=== PATIENT | female | born 1955 | race Caucasian/White ===

== ENCOUNTER → 2016-11-26 | Outpatient (CLI) | payer BC ==
--- NOTE | 2016-11-27 08:01 | WWHP ---
DATE OF SERVICE: 11/26/2016 CHIEF COMPLAINT: The patient is here for her routine gynecologic exam and mammogram. HPI: This is a 61-year-old G4, P3-0-1-3 with an LMP of 2008. The patient is without gynecologic complaints and denies any postmenopausal bleeding. PAST MEDICAL HISTORY: Hypothyroidism, elevated cholesterol, chronic hypertension, asthma, osteopenia and arthritis. MEDICATIONS: 1. Simvastatin 20 mg daily. 2. Synthroid 100 mcg 5 days a week. 3. Amlodipine 5 mg daily. 4. Qvar 1 puff b.i.d. 5. Calcium supplement with vitamin D 1 b.i.d. 6. Vitamin D 1000 units daily. 7. Sleep aid at bedtime. ALLERGIES: No known drug allergies. PAST SURGICAL HISTORY: section x2, D&C in 1995, colonoscopies in 2006, 2012 and 2015. 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 SOCIAL HISTORY: She denies tobacco, alcohol, and drug use. 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 FAMILY HISTORY: Unchanged from the 2015 H&P. REVIEW OF SYSTEMS: She gained about 9 pounds over the last year. She denies respiratory, cardiac, or GI problems. PHYSICAL EXAM: Blood pressure 119/79. Height 5 feet 7 inches. Weight 215 pounds. Temperature 98.7, pulse 84. This a well-developed, well-nourished white female who is alert and oriented x3 in no acute distress. HEENT is within normal limits. NECK: Supple without mass or thyromegaly. CHEST AND LUNGS: Clear to auscultation. HEART: Regular rate and rhythm. Breasts are without mass or discharge. Axillary exam is negative for adenopathy. BACK: Negative for CVA tenderness. ABDOMEN: Soft, nontender, without palpable masses. PELVIC EXAM: External genitalia reveals moderate atrophy without lesions. Cervix and vagina reveal mild to moderate atrophy without lesions. The cervix is slightly stenotic secondary to atrophy. There is no evidence of prolapse. The uterus is midposition, nongravid size and nontender. There are no palpable adnexal masses or tenderness. Rectovaginal exam is negative for mass or tenderness and is negative for occult blood. EXTREMITIES: Nontender. IMPRESSION: 1. A 61-year-old menopausal female with normal gynecologic exam. 2. History of osteopenia. PLAN: 1. Pap smear was performed. 2. Self breast examination was discussed. 3. Mammogram will be done today. 4. Bone density testing will be done today. 5. Osteoporosis prevention was discussed. 6. She will return in one year.
--- NOTE | 2016-11-27 08:12 | BD ---
EXAMINATION TYPE: MG DEXA axial skeleton. DATE OF EXAM: 11/26/2016 1:50 PM COMPARISON: 2012 CLINICAL HISTORY: post menopausal Height: 5'6 Weight: 216 FRAX RISK QUESTIONS: Alcohol (3 or more units per day): no Family History (Parent hip fracture): yes Glucocorticoids (More than 3mos): no (Ex: prednisone, prednisolone, methylprednisolone, dexamethasone, and hydrocortisone). History of Fracture in Adulthood: no Secondary Osteoporosis: 1. Type 1 Diabetes: no 2. Hyperthyroidism: no 3. Menopause before 45: no 4. Malnutrition: no 5. Chronic liver disease: no Rheumatoid Arthritis: no Current Tobacco Use: no RISK FACTORS HISTORY OF: Family History of Osteoporosis: Active: semi Postmenopausal woman: MEDICATIONS: Thyroid Medications: Which medication: Synthroid How Lon years Additional Medications: blood pressure, cholesterol, asthma, vitamin d ,calcium , sleep help Additional History: EXAM MEASUREMENTS: Bone mineral densitometry was performed using the [employer] System. Bone mineral density as measured about the Lumbar spine is: ----- L1-L4(G/cm2): 1.054 T Score Values are as follows: ----- L2: -1.5 ----- L3: -1.3 ----- L4: -0.5 ----- L1-L4:-1.0 Bone mineral density has: Decreased -4.4% since study of: 06/29/2013 Bone mineral density about the R hip (g/cm2): 0.741 Bone mineral density about the L hip (g/cm2): 0.745 T Score values are as follows: -----R Neck: -2.1 -----L Neck: -2.1 -----R Total: -1.7 -----L Total: -1.6 Bone mineral density has: Decreased -0.8% since study of: 06/29/2013 IMPRESSION: Osteopenia (T Score between -2.5 and -1 as noted by T score values:L2,L3, Jeremy Hips There is slightly increased risk of fracture and the patient may be considered for treatment. Re-Screen 2-5 years. Bone density within the bilateral hips has diminished 0.6% from 06/29/2013. Bone density within the l umbar spine is diminished 4.4% from 2012. NOTE: T-SCORE=SD OF THE YOUNG ADULT MEAN.
--- NOTE | 2016-11-27 12:54 | MM ---
Reason for exam: screening (asymptomatic). Last mammogram was performed 1 year and 5 months ago. History: Patient is postmenopausal. Took hormonal contraceptives for 2 years. Physical Findings: A clinical breast exam by your physician is recommended on an annual basis and results should be correlated with mammographic findings. MG 3D Screening Mammo W/Cad Bilateral CC, MLO, and XCCL view(s) were taken. Prior study comparison: July 11, 2015, bilateral MG 3d screening mammo w/cad. July 05, 2014, bilateral MG screening mammo w CAD. June 29, 2013, CAD bilateral diagnostic mammogram. There are scattered fibroglandular densities. Finding: There are typically benign vascular, round calcifications in both breasts. There is a chronic nodularity bilaterally. There is no discrete abnormality. ASSESSMENT: Benign, BI-RAD 2 RECOMMENDATION: Routine screening mammogram of both breasts in 1 year.
== END | disposition home or self-care (01) ==
LOC: WWCWWP 12:24
PROVIDERS: ATTEND Obstetrics & Gynecology
DX: Z12.31 Encounter for screening mammogram for malignant neoplasm of breast (principal); M85.851 Other specified disorders of bone density and structure, right thigh; M85.852 Other specified disorders of bone density and structure, left thigh
CPT/HCPCS: 77080; 77063; G0202

== ENCOUNTER → 2017-03-24 | Outpatient (CLI) | payer BC ==
--- NOTE | 2017-03-25 09:34 | ECHOF ---
Referral Reason:R01.1 Cardiac Murmur Unspecified MEASUREMENTS -------- HEIGHT: 167.6 cm WEIGHT: 97.5 kg BP: RVIDd: 2.4 cm (< 3.3) IVSd: 1.3 cm (0.6 - 1.1) LVIDd: 3.8 cm (3.9 - 5.3) LVPWd: 1.2 cm (0.6 - 1.1) IVSs: 1.8 cm LVIDs: 2.9 cm LVPWs: 1.5 cm LAESV Index (A-L): 19.65 ml/m Ao Diam: 3.0 cm (2.0 - 3.7) AV Cusp: 1.8 cm (1.5 - 2.6) LA Diam: 3.6 cm (2.7 - 3.8) MV EXCURSION: 15.293 mm (> 18.000) MV EF SLOPE: 85 mm/s (70 - 150) EPSS: 1.3 cm MV E Theron: 0.96 m/s MV DecT: 289 ms MV A Theron: 0.85 m/s MV E/A Ratio: 1.12 RAP: 5.00 mmHg RVSP: 32.83 mmHg FINDINGS -------- Sinus rhythm. This was a technically adequate study. The left ventricular size is normal. There is mild concentric left ventricular hypertrophy. Overall left ventricular systolic function is normal with, an EF between 55 - 60 %. The right ventricle is normal in size and function. Normal LA size by volume 22+/-6 ml/m2. The right atrium is normal in size. Aortic valve is trileaflet and is mildly thickened. There is no evidence of aortic regurgitation. There is no evidence of aortic stenosis. The mitral valve leaflets are mildly thickened. Mild mitral regurgitation is present. Mild tricuspid regurgitation present. Right ventricular systolic pressure is normal at < 35 mmHg. There is no evidence of pulmonary hypertension. The pulmonic valve is normal. The aortic root size is normal. Normal inferior vena cava with normal inspiratory collapse consistent with estimated right atrial pressure of 5 mmHg. The pericardium is normal. There is no pericardial effusion. CONCLUSIONS -------- 1. Sinus rhythm. 2. Mild tricuspid regurgitation present. 3. Right ventricular systolic pressure is normal at < 35 mmHg. 4. There is no evidence of pulmonary hypertension. 5. The aortic root size is normal. 6. There is no pericardial effusion. 7. This was a technically adequate study. 8. The left ventricular size is normal. 9. There is mild concentric left ventricular hypertrophy. 10. Overall left ventricular systolic function is normal with, an EF between 55 - 60 %. 11. Normal LA size by volume 22+/-6 ml/m2. 12. Aortic valve is trileaflet and is mildly thickened. 13. The mitral valve leaflets are mildly thickened. 14. Mild mitral regurgitation is present. ENGINEERING DOCUMENT CONTROL CLERK: Felipe Baumann RDCS
== END | disposition home or self-care (01) ==
LOC: RADECHMAIN 15:24
PROVIDERS: ATTEND Family Medicine
DX: I08.3 Combined rheumatic disorders of mitral, aortic and tricuspid valves (principal)
CPT/HCPCS: 93306

== ENCOUNTER → 2017-12-30 | Outpatient (CLI) | payer BC ==
[2017-12-30 12:42] LABS: Basophils % (A) 0 %; Eosinophils # (A) 0.2 k/uL (0-0.7); Eosinophils % (A) 2 %; HCT 40.8 % (34.0-46.0); Lymphocytes # (A) 1.7 k/uL (1.0-4.8); Lymphocytes % (A) 16 %; MCH 28.6 pg (25.0-35.0); MCHC 31.9 g/dL (31.0-37.0); MCV 89.7 fL (80.0-100.0); Mean Platelet Volume 6.6; Monocytes # (A) 0.4 k/uL (0-1.0); Monocytes % (A) 4 %; Neutrophils # (A) 8.4 k/uL (1.3-7.7); Neutrophils % (A) 77 %; Platelet Count 336 k/uL (150-450); RBC 4.55 m/uL (3.80-5.40); RDW 13.3 % (11.5-15.5)
[2018-01-02 14:31] LABS: Hepatitis BE Antibody NEG (Negative)
[2018-01-02 14:34] LABS: Hepatitis BE Antigen NEG (Negative)
== END | disposition home or self-care (01) ==
LOC: LABWHC1 12:02
PROVIDERS: ATTEND Dermatology
DX: L40.0 Psoriasis vulgaris (principal); L82.0 Inflamed seborrheic keratosis; L53.8 Other specified erythematous conditions
CPT/HCPCS: 36415; 82565; 84450; 84460; 84520; 85025; 86707; 86803; 87350

== ENCOUNTER → 2018-03-12 | Outpatient (CLI) | payer BC ==
[2018-03-12 09:18] LABS: Basophils # (A) 0.1 k/uL (0-0.2); Basophils % (A) 1 %; Eosinophils # (A) 0.2 k/uL (0-0.7); Eosinophils % (A) 2 %; HCT 42.3 % (34.0-46.0); HGB 12.7 gm/dL (11.4-16.0); Hypochromasia Slight; Lymphocytes # (A) 1.9 k/uL (1.0-4.8); Lymphocytes % (A) 20 %; MCH 27.2 pg (25.0-35.0); MCV 90.5 fL (80.0-100.0); Mean Platelet Volume 6.2; Monocytes # (A) 0.5 k/uL (0-1.0); Monocytes % (A) 5 %; Neutrophils # (A) 7.2 k/uL (1.3-7.7); Neutrophils % (A) 73 %; Platelet Count 378 k/uL (150-450); RBC 4.67 m/uL (3.80-5.40); RDW 13.2 % (11.5-15.5); WBC 9.9 k/uL (3.8-10.6)
[2018-03-12 09:34] LABS: Calcium 9.8 mg/dL (8.4-10.2); Total Bilirubin 0.4 mg/dL (0.2-1.3); Total Protein 7.6 g/dL (6.3-8.2)
[2018-03-12 09:49] LABS: T4, Free (Free Thyroxine) 0.9 ng/dL (0.78-2.19)
== END | disposition home or self-care (01) ==
LOC: LABWHC1 08:58
PROVIDERS: ATTEND Family Medicine
DX: Z00.01 Encounter for general adult medical examination with abnormal findings (principal); I10 Essential (primary) hypertension; E78.2 Mixed hyperlipidemia; E03.9 Hypothyroidism, unspecified; J45.20 Mild intermittent asthma, uncomplicated; E55.9 Vitamin D deficiency, unspecified
CPT/HCPCS: 36415; 80053; 80061; 82306; 84439; 84443; 85025

== ENCOUNTER → 2018-06-30 | Outpatient (CLI) | payer BC ==
--- NOTE | 2018-06-30 07:59 | MR ---
EXAMINATION TYPE: MR sacroiliac joints wo con DATE OF EXAM: 06/30/2018 COMPARISON: None. HISTORY: Sacrolitiis / Inflammation of Sacroiliac Joint sacrum Standard multiplanar, multisequence MRI departmental protocol Multiplanar, multisequence images of the pelvis focus in sacroiliac joints were acquired. FINDINGS: Sacroiliac joints show symmetric mild to moderate spurring. No suspicious narrowing is iden tified. Bone marrow signal intensity is maintained without suspicious focal edema appreciated in eith er sacroiliac joint. Visualized portion of sacral alar are intact. Visualized portion of pelvis shows anteverted uterus and nondilated bowel. No concerning pelvic fluid collection or adenopathy is seen. Bladder is suboptimally distended. IMPRESSION: Some spurring at sacroiliac joints seen best on axial images. No suspicious edema noted to suggest ac tive or acute sacroiliitis.
== END | disposition home or self-care (01) ==
LOC: RADMRIMAIN 06:02
PROVIDERS: ATTEND Internal Medicine Rheumatology
DX: M46.08 Spinal enthesopathy, sacral and sacrococcygeal region (principal)
CPT/HCPCS: 72195

== ENCOUNTER → 2019-03-03 | Outpatient (CLI) | payer BC ==
[2019-03-03 10:31] VITALS: BP 144/87; PULSE 76; RESP 18; TEMP 98.4; BMI 30.9
--- NOTE | 2019-03-03 11:40 | P.HPOB ---
History of Present Illness H&P Date: 03/03/19 Chief Complaint: The patient is here for her routine gynecologic exam and ma mmogram. This is a 63-year-old with an element of 2008. The patient is without gynecologic complaints and denies any postmenopausal bleeding. Review of Systems The patient has lost 23 pounds over the last 2years and she attributes this to a decreased appetite with methotrexate.. She denies respiratory, cardiac, or G.I. problems. Past Medical History Past Medical History: Asthma, COPD, Hyperlipidemia, Hypertension, Osteoarthritis (OA), Thyroid Disorder Additional Past Medical History / Comment(s): Hypothyroidism, psoriasis, and osteopenia.. 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 History of Any Multi-Drug Resistant Organisms: None Reported Past Surgical History: Section Additional Past Surgical History / Comment(s): colonoscopy 2016(3rd, next after 5yrs),c-sect x2, D&C x2 Past Anesthesia/Blood Transfusion Reactions: No Reported Reaction Past Psychological History: No Psychological Hx Reported Smoking Status: Never smoker Past Alcohol Use History: None Reported Past Drug Use History: None Reported Additional History: She has been since 1972 and is sexually active. 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 - Past Family History Mother Family Medical History: COPD, CVA/TIA, Myocardial Infarction ([place]) Additional Family Medical History / Comment(s): emphysema Father Family Medical History: COPD Additional Family Medical History / Comment(s): emphysema Brother(s) Family Medical History: CVA/TIA, Diabetes Mellitus Sister(s) Family Medical History: Hypertension, Thyroid Disorder Additional Family Medical History / Comment(s): thyroid ca,arrythmias Medications and Allergies Home Medications Medication Instructions Recorded Confirmed Type Acetaminophen [Tylenol Arthritis] 650 mg PO HS PRN 03/21/16 03/03/19 History Beclomethasone Dipropionate [Qvar 1 puff INHALATION BID 03/21/16 03/03/19 History 80 mcg] Calcium Carbonate/Vitamin D3 2 each PO DAILY 03/21/16 03/03/19 History [Calcium 600-Vit D3 400 Caplet] Cholecalciferol [Vitamin D3] 1,000 unit PO BID 03/21/16 03/03/19 History Levothyroxine Sodium [Synthroid] 100 mcg PO MOTUTHFRSA 03/21/16 03/03/19 History Simvastatin 20 mg PO HS 03/21/16 03/03/19 History amLODIPine BESYLATE [Norvasc] 5 mg PO QAM 03/21/16 03/03/19 History diphenhydrAMINE [Benadryl] 50 mg PO HS PRN 03/21/16 03/03/19 History Folic Acid 1 tab PO DAILY 03/03/19 03/03/19 History Methotrexate [Xatmep Oral Soln] 10 cap PO FARLEY 03/03/19 03/03/19 History predniSONE 5 mg PO DAILY 03/03/19 03/03/19 History Allergies Allergy/AdvReac Type Severity Reaction Status Date / Time No Known Allergies Allergy Verified 03/03/19 10:37 Exam Vital Signs Temp Pulse Resp BP Pulse Ox 03/03/19 10:26 98.4 F 76 18 144/87 98 Intake and Output 03/02/19 03/03/19 03/03/19 22:59 06:59 14:59 Other: Weight 87.09 kg Height 5'6", weight 192 pounds, BMI 31.0. This is a well-developed well-nourished white female who is alert and oriented times 3 in no acute distress. HEENT: Within normal limits. NECK: Supple without mass or thyromegaly. CHEST AND LUNGS: Clear to auscultation. HEART: Regular rate and rhythm. BREASTS: Are without mass or discharge. AXILLARY EXAM: Negative for adenopathy. BACK: Negative for CVA tenderness. ABDOMEN: Soft, nontender, without palpable masses. PELVIC EXAM: Normal external genitalia with mild to moderate atrophy. Cervix and vagina appear normal with mild to moderate atrophy. There is no unusual discharge. There is no evidence of prolapse. The uterus is midposition, nongravid size and nontender. There are no palpable adnexal masses or tenderness. RECTAL EXAM: rectovaginal exam is negative for mass or tenderness and is negative for occult blood. EXTREMITIES: Nontender. IMPRESSION: 1. 63-year-old menopausal female with normal gynecologic exam. 2. History of osteopenia. PLAN: 1. Pap smear was performed. 2. Self breast awareness was discussed with the patient. 3. Screening mammogram will be done today. 4. Osteoporosis prevention was discussed. I have stressed the importance of adequate calcium, vitamin D and regular exercise. Recommended amounts of calcium and vitamin D were also discussed. Bone density testing will be done today. 5. We have discussed the option of vaginal estrogen for vaginal dryness and discomfort with sexual intercourse. She will use a lubricant if needed and will call if she feels the need for vaginal estrogen. 6. She was advised to return in one year for her annual well woman exam.
--- NOTE | 2019-03-04 11:48 | MM ---
Reason for exam: screening (asymptomatic). Last mammogram was performed 2 years and 3 months ago. History: Patient is postmenopausal. Took hormonal contraceptives for 2 years. Physical Findings: A clinical breast exam by your physician is recommended on an annual basis and results should be correlated with mammographic findings. MG 3D Screening Mammo W/Cad Bilateral CC, MLO, and XCCM view(s) were taken. Prior study comparison: November 26, 2016, bilateral MG 3d screening mammo w/cad. July 11, 2015, bilateral MG 3d screening mammo w/cad. The breast tissue is heterogeneously dense. This may lower the sensitivity of mammography. There are benign appearing vascular calcifications bilaterally. There is chronic nodularity bilaterally axilla. There is no discrete abnormality. ASSESSMENT: Benign, BI-RAD 2 RECOMMENDATION: Routine screening mammogram of both breasts in 1 year.
--- NOTE | 2019-03-05 17:32 | BD ---
EXAMINATION TYPE: Axial Bone Density DATE OF EXAM: 03/03/2019 COMPARISON: 11/26/2016 CLINICAL HISTORY: Height: 65.5 IN Weight: 191 LBS FRAX RISK QUESTIONS: Family History (Parent hip fracture): YES MOTHER History of Fracture in Adulthood: YES SHOULDER AGE 63 RISK FACTORS HISTORY OF: Active: YES Postmenopausal woman: AGE 54 Take estrogen and/or progesterone medications: NOT NOW TOOK CONTROL FOR 2 YEARS MEDICATIONS: Prednisone or other steroids: PT TAKING A 10 WEEK COURSE OF PREDNISONE FOR PSORIASIS. PT ON WEEK 2. Thyroid Medications: YES Which medication: Synthroid How Lon+ YEARS Additional Medications: CALCIUM, VIT D, SYNTHROID, PREDNISONE(WEEK 2 OF 10 WEEKS FOR PSORIASIS),SIMVA STATIN, AMLODIPINE, FOLIC ACID, QVAR INHALER, METHOTREXATE, SLEEP AID MEDICATION EXAM MEASUREMENTS: Bone mineral densitometry was performed using the [employer] System. Bone mineral density as measured about the Lumbar spine is: ----- L1-L4(G/cm2): 1.009 T Score Values are as follows: ----- L2: -1.4 ----- L3: -0.9 ----- L4: -1.3 ----- L1-L4: -1.4 Bone mineral density has: Decreased -2.2% since study of: 11/26/2016 Bone mineral density about the R hip (g/cm2): 0.675 Bone mineral density about the L hip (g/cm2): 0.686 T Score values are as follows: -----R Neck: -2.6 -----L Neck: -2.5 -----R Total: -2.2 -----L Total: -2.0 Bone mineral density has: Decreased -7.3% since study of: 11/26/2016 IMPRESSION: Osteoporosis (T Score less than -2.5). There is increased fracture risk and therapy is usually indicated based on age. Re-Screen 1-2 years. NOTE: T-SCORE=SD OF THE YOUNG ADULT MEAN.
== END | disposition home or self-care (01) ==
LOC: WWCWWP 10:12
PROVIDERS: ATTEND Obstetrics & Gynecology
DX: Z12.31 Encounter for screening mammogram for malignant neoplasm of breast (principal); M81.0 Age-related osteoporosis without current pathological fracture; Z78.0 Asymptomatic menopausal state
CPT/HCPCS: 77063; 77067; 77080

== ENCOUNTER → 2019-03-31 | Outpatient (CLI) | payer BC ==
[2019-03-31 18:43] LABS: African American GFR (CKD) 55.3 (60.0-200.0); Calcium 8.9 mg/dL (8.7-10.3)
== END | disposition home or self-care (01) ==
LOC: LABWHC1 13:39
PROVIDERS: ATTEND Obstetrics & Gynecology
DX: M81.0 Age-related osteoporosis without current pathological fracture (principal)
CPT/HCPCS: 36415; 82310; 82565

== ENCOUNTER 2020-02-07 10:28 | Emergency (ER) | payer MEDICARE, BC ==
[2020-02-07 10:41] LABS: Glucose,Whole Blood 107 mg/dL (75-99)
--- NOTE | 2020-02-07 11:11 | ED ---
General Adult HPI - General Chief complaint: Recheck/Abnormal Lab/Rx Stated complaint: poss blood sugar problem Time Seen by Provider: 02/07/20 10:54 Source: patient, RN notes reviewed Mode of arrival: ambulatory Limitations: no limitations - History of Present Illness Initial comments: 64-year-old female presents emergency Department with chief complaint of episodes of feeling jittery. Patient states that she's had these have path and states she woke up around 2 AM this morning states that she felt very jittery, slightly at that time. Patient states that she had no chest pain or shortness breath no nausea vomiting diarrhea constipation associated. She states that this is a same episodes that she's had in the past in which she just has to eat something. Patient states she did eat something felt better but states that she will eventually woke up against morning felt somewhat. Patient states that she tried some food initially did not help but then went ODT in symptoms improved. Patient denies any current symptoms denies any chest pain, shortness breath, headache, dizziness, neck pain, back pain, dysuria hematuria. Patient states that she did have peanut butter and toast along with the croissant sandwich this morning blood sugar 107 on arrival. Patient has never checked her blood sugar when she was symptomatic. - Related Data Home Medications Medication Instructions Recorded Confirmed Beclomethasone Dipropionate [Qvar 1 puff INHALATION RT-BID 03/21/16 02/07/20 80 mcg] Calcium Carbonate/Vitamin D3 1 tab PO DAILY 03/21/16 02/07/20 [Calcium 600-Vit D3 400 Caplet] Cholecalciferol [Vitamin D3] 1,000 unit PO BID 03/21/16 02/07/20 Levothyroxine Sodium [Synthroid] 100 mcg PO MOTUWETHFRSA 03/21/16 02/07/20 Simvastatin 20 mg PO HS 03/21/16 02/07/20 amLODIPine BESYLATE [Norvasc] 5 mg PO QAM 03/21/16 02/07/20 diphenhydrAMINE [Benadryl] 50 mg PO HS PRN 03/21/16 02/07/20 Folic Acid 1 tab PO DAILY 03/03/19 02/07/20 Alendronate Sodium [Fosamax] 70 mg PO FARLEY 02/07/20 02/07/20 Calcium Carbonate [Calcium] 600 mg PO DAILY 02/07/20 02/07/20 metHOTREXate sodium [Methotrexate] 25 mg PO FARLEY 02/07/20 02/07/20 Allergies Allergy/AdvReac Type Severity Reaction Status Date / Time No Known Allergies Allergy Verified 02/07/20 11:55 Review of Systems ROS Statement: Those systems with pertinent positive or pertinent negative responses have been documented in the HPI. ROS Other: All systems not noted in ROS Statement are negative. Past Medical History Past Medical History: Asthma, COPD, Hyperlipidemia, Hypertension, Osteoarthritis (OA), Thyroid Disorder Additional Past Medical History / Comment(s): Hypothyroidism, psoriasis, and osteopenia.. 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 History of Any Multi-Drug Resistant Organisms: None Reported Past Surgical History: Section Additional Past Surgical History / Comment(s): colonoscopy 2016(3rd, next after 5yrs),c-sect x2, D&C x2 Past Anesthesia/Blood Transfusion Reactions: No Reported Reaction Past Psychological History: No Psychological Hx Reported Smoking Status: Never smoker Past Alcohol Use History: None Reported Past Drug Use History: None Reported - Past Family History Mother Family Medical History: COPD, CVA/TIA, Myocardial Infarction ([place]) Additional Family Medical History / Comment(s): emphysema Father Family Medical History: COPD Additional Family Medical History / Comment(s): emphysema Brother(s) Family Medical History: CVA/TIA, Diabetes Mellitus Sister(s) Family Medical History: Hypertension, Thyroid Disorder Additional Family Medical History / Comment(s): thyroid ca,arrythmias General Exam Limitations: no limitations General appearance: alert, in no apparent distress Head exam: Present: atraumatic, normocephalic, normal inspection Eye exam: Present: normal appearance, PERRL, EOMI. Absent: scleral icterus, conjunctival injection, periorbital swelling ENT exam: Present: normal exam, normal oropharynx, mucous membranes moist Neck exam: Present: normal inspection, full ROM. Absent: tenderness, meningismus, lymphadenopathy Respiratory exam: Present: normal lung sounds bilaterally. Absent: respiratory distress, wheezes, rales, rhonchi, stridor Cardiovascular Exam: Present: regular rate, normal rhythm, normal heart sounds. Absent: systolic murmur, diastolic murmur, rubs, gallop, clicks GI/Abdominal exam: Present: soft, normal bowel sounds. Absent: distended, tenderness, guarding, rebound, rigid Neurological exam: Present: alert, oriented X3, CN II-XII intact Skin exam: Present: warm, dry, intact, normal color. Absent: rash Course Vital Signs 02/07/20 02/07/20 10:36 12:08 Temperature 98.4 F Pulse Rate 81 72 Respiratory 18 16 Rate Blood Pressure 155/67 139/74 O2 Sat by Pulse 96 99 Oximetry Medical Decision Making - Medical Decision Making 64-year-old presented for episode of shaking, jugular feeling there is concern about possible hyperglycemia. Sugar was 105 after eating. Rest of labs are unremarkable. Patient has no complaints at this time will be discharged in stable condition with close follow-up she is recommended to purchase a glucometer for self-monitoring. - Lab Data Result diagrams: 02/07/20 11:09 02/07/20 11:09 Lab Results 02/07/20 02/07/20 02/07/20 Range/Units 10:39 11:09 11:09 WBC 6.3 (3.8-10.6) k/uL RBC 4.44 (3.80-5.40) m/uL Hgb 12.8 (11.4-16.0) gm/dL Hct 40.1 (34.0-46.0) % MCV 90.4 (80.0-100.0) fL MCH 28.8 (25.0-35.0) pg MCHC 31.8 (31.0-37.0) g/dL RDW 15.1 (11.5-15.5) % Plt Count 269 (150-450) k/uL Neutrophils % 64 % Lymphocytes % 20 % Monocytes % 8 % Eosinophils % 5 % Basophils % 1 % Neutrophils # 4.0 (1.3-7.7) k/uL Lymphocytes # 1.3 (1.0-4.8) k/uL Monocytes # 0.5 (0-1.0) k/uL Eosinophils # 0.3 (0-0.7) k/uL Basophils # 0.0 (0-0.2) k/uL Sodium 139 (137-145) mmol/L Potassium 4.5 (3.5-5.1) mmol/L Chloride 107 (98-107) mmol/L Carbon Dioxide 23 (22-30) mmol/L Anion Gap 9 mmol/L BUN 17 (7-17) mg/dL Creatinine 0.83 (0.52-1.04) mg/dL Est GFR (CKD-EPI)AfAm 86 (>60 ml/min/1.73 sqM) Est GFR (CKD-EPI)NonAf 75 (>60 ml/min/1.73 sqM) Glucose 104 H (74-99) mg/dL POC Glucose (mg/dL) 107 H (75-99) mg/dL POC Glu Property Accountant Jessica Neil Calcium 9.2 (8.4-10.2) mg/dL Magnesium 2.0 (1.6-2.3) mg/dL Total Bilirubin 0.6 (0.2-1.3) mg/dL AST 39 H (14-36) U/L ALT 27 (4-34) U/L Alkaline Phosphatase 96 (38-126) U/L Troponin I (0.000-0.034) ng/mL Total Protein 7.7 (6.3-8.2) g/dL Albumin 4.4 (3.5-5.0) g/dL Lipase 143 (23-300) U/L TSH 1.520 (0.465-4.680) mIU/L 02/07/20 Range/Units 11:09 WBC (3.8-10.6) k/uL RBC (3.80-5.40) m/uL Hgb (11.4-16.0) gm/dL Hct (34.0-46.0) % MCV (80.0-100.0) fL MCH (25.0-35.0) pg MCHC (31.0-37.0) g/dL RDW (11.5-15.5) % Plt Count (150-450) k/uL Neutrophils % % Lymphocytes % % Monocytes % % Eosinophils % % Basophils % % Neutrophils # (1.3-7.7) k/uL Lymphocytes # (1.0-4.8) k/uL Monocytes # (0-1.0) k/uL Eosinophils # (0-0.7) k/uL Basophils # (0-0.2) k/uL Sodium (137-145) mmol/L Potassium (3.5-5.1) mmol/L Chloride (98-107) mmol/L Carbon Dioxide (22-30) mmol/L Anion Gap mmol/L BUN (7-17) mg/dL Creatinine (0.52-1.04) mg/dL Est GFR (CKD-EPI)AfAm (>60 ml/min/1.73 sqM) Est GFR (CKD-EPI)NonAf (>60 ml/min/1.73 sqM) Glucose (74-99) mg/dL POC Glucose (mg/dL) (75-99) mg/dL POC Glu Property Accountant ID Calcium (8.4-10.2) mg/dL Magnesium (1.6-2.3) mg/dL Total Bilirubin (0.2-1.3) mg/dL AST (14-36) U/L ALT (4-34) U/L Alkaline Phosphatase (38-126) U/L Troponin I <0.012 (0.000-0.034) ng/mL Total Protein (6.3-8.2) g/dL Albumin (3.5-5.0) g/dL Lipase (23-300) U/L TSH (0.465-4.680) mIU/L Disposition Clinical Impression: Hypoglycemia, Feeling jittery Disposition: HOME SELF-CARE Condition: Stable Instructions (If sedation given, give patient instructions): Non-diabetic Hypoglycemia (ED) Additional Instructions: Please return to the Emergency Department if symptoms worsen or any other elvi rns. Is patient prescribed a controlled substance at d/c from ED?: No Referrals: Michelle Collins III, MD [Primary Care Provider] - 1-2 days Time of Disposition: 13:21
[2020-02-07 11:30] LABS: Basophils % (A) 1 %; Eosinophils # (A) 0.3 k/uL (0-0.7); Eosinophils % (A) 5 %; HCT 40.1 % (34.0-46.0); HGB 12.8 gm/dL (11.4-16.0); Lymphocytes # (A) 1.3 k/uL (1.0-4.8); Lymphocytes % (A) 20 %; MCH 28.8 pg (25.0-35.0); MCHC 31.8 g/dL (31.0-37.0); MCV 90.4 fL (80.0-100.0); Mean Platelet Volume 7.1; Monocytes # (A) 0.5 k/uL (0-1.0); Monocytes % (A) 8 %; Neutrophils % (A) 64 %; Platelet Count 269 k/uL (150-450); RBC 4.44 m/uL (3.80-5.40); RDW 15.1 % (11.5-15.5); WBC 6.3 k/uL (3.8-10.6)
[2020-02-07 11:39] LABS: Albumin 4.4 g/dL (3.5-5.0); Calcium 9.2 mg/dL (8.4-10.2); Total Bilirubin 0.6 mg/dL (0.2-1.3); Total Protein 7.7 g/dL (6.3-8.2)
[2020-02-07 11:48] LABS: Potassium 4.5 mmol/L (3.5-5.1)
[2020-02-07 13:49] VITALS: BP 147/99; PULSE 83; RESP 18; TEMP 98.3
== END 2020-02-07 13:47 | disposition home or self-care (01) ==
LOC: EC 10:28
DX: E16.2 Hypoglycemia, unspecified (principal); R45.0 Nervousness; J44.9 Chronic obstructive pulmonary disease, unspecified; E78.5 Hyperlipidemia, unspecified; I10 Essential (primary) hypertension; E03.9 Hypothyroidism, unspecified; Z79.890 Hormone replacement therapy; Z79.899 Other long term (current) drug therapy; Z79.51 Long term (current) use of inhaled steroids
CPT/HCPCS: 36415; 80053; 83690; 83735; 84443; 84484; 85025; 93005; 99284

== ENCOUNTER → 2020-03-31 | Outpatient (CLI) | payer MEDICARE, BC ==
--- NOTE | 2020-03-31 12:39 | ECHOF ---
Referral Reason:I34.0 nonrheumatic mitral insufficiency MEASUREMENTS -------- HEIGHT: 167.6 cm WEIGHT: 88.9 kg BP: IVSd: 1.1 cm (0.6 - 1.1) LVIDd: 3.7 cm (3.9 - 5.3) LVPWd: 1.0 cm (0.6 - 1.1) IVSs: 1.9 cm LVIDs: 1.4 cm LVPWs: 1.1 cm LAESV Index (A-L): 15.02 ml/m Ao Diam: 2.5 cm (2.0 - 3.7) AV Cusp: 1.9 cm (1.5 - 2.6) LA Diam: 3.1 cm (2.7 - 3.8) MV EXCURSION: 10.412 mm (> 18.000) MV EF SLOPE: 57 mm/s (70 - 150) EPSS: 0.5 cm MV E Theron: 0.78 m/s MV DecT: 164 ms MV A Theron: 0.93 m/s MV E/A Ratio: 0.84 RAP: 5.00 mmHg RVSP: 23.72 mmHg FINDINGS -------- This was a technically adequate study. The left ventricular size is normal. Left ventricular wall thickness is normal. Overall left vent ricular systolic function is normal with, an EF between 55 - 60 %. The diastolic filling pattern is normal for the age of the patient 11.42. The right ventricle is normal in size. The left atrial size is normal. Normal LA size by volume 22+/-6 ml/m2. The right atrial size is normal. Interatrial and interventricular septum intact. The aortic valve is trileaflet and appears structurally normal. The mitral valve is normal. Mild mitral regurgitation is present. The tricuspid valve appears structurally normal. Trace tricuspid regurgitation present. Right [place] tricular systolic pressure is normal at < 35 mmHg. There is no pulmonic regurgitation present. The aortic root size is normal. Normal inferior vena cava with normal inspiratory collapse consistent with estimated right atrial pre ssure of 5 mmHg. There is no pericardial effusion. CONCLUSIONS -------- 1. The left ventricular size is normal. 2. Left ventricular wall thickness is normal. 3. Overall left ventricular systolic function is normal with, an EF between 55 - 60 %. 4. The diastolic filling pattern is normal for the age of the patient 11.42 5. Mild mitral regurgitation is present. 6. Trace tricuspid regurgitation present. 7. There is no pericardial effusion. BROACH TROUBLE SHOOTER: Viola Suresh RDCS
== END | disposition home or self-care (01) ==
LOC: RADECHMAIN 10:32
PROVIDERS: ATTEND Family Medicine
DX: I34.0 Nonrheumatic mitral (valve) insufficiency (principal)
CPT/HCPCS: 93306

== ENCOUNTER → 2020-05-16 | Outpatient (CLI) | payer MEDICARE, BC ==
[2020-05-16 09:28] VITALS: BP 135/71; PULSE 85; RESP 18; TEMP 98.3
--- NOTE | 2020-05-16 10:04 | P.HPOB ---
History of Present Illness H&P Date: 05/16/20 Chief Complaint: The patient is here for her routine gynecologic exam and ma mmogram. This is a 65-year-old 013 with an LMP of 2008. The patient is without gynecologic complaints and denies any postmenopausal bleeding. Review of Systems She is gained about 12 pounds over the past year. She states she has been less active during the coronavirus pandemic, but she is now trying to increase her activity again. She denies respiratory, cardiac and G.I. problems. She denies maltreatment or problems with falling. : she denies any significant problems with urinary leakage. Past Medical History Past Medical History: Asthma, COPD, Hyperlipidemia, Hypertension, Osteoarthritis (OA), Thyroid Disorder Additional Past Medical History / Comment(s): Hypothyroidism, psoriasis, and osteopenia.. 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 History of Any Multi-Drug Resistant Organisms: None Reported Past Surgical History: Section Additional Past Surgical History / Comment(s): colonoscopy 2016(3rd, next after 10yr per pt),c-sect x2, D&C x2 Past Anesthesia/Blood Transfusion Reactions: No Reported Reaction Past Psychological History: No Psychological Hx Reported Smoking Status: Never smoker Past Alcohol Use History: Rare Past Drug Use History: None Reported Additional History: She has been since 1972 and is not sexually active. 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 - Past Family History Mother Family Medical History: COPD, CVA/TIA, Myocardial Infarction ([place]) Additional Family Medical History / Comment(s): emphysema Father Family Medical History: COPD Additional Family Medical History / Comment(s): emphysema Brother(s) Family Medical History: CVA/TIA, Diabetes Mellitus Sister(s) Family Medical History: Hypertension, Thyroid Disorder Additional Family Medical History / Comment(s): thyroid ca,arrythmias Medications and Allergies Home Medications Medication Instructions Recorded Confirmed Type Beclomethasone Dipropionate [Qvar 1 puff INHALATION RT-BID 03/21/16 05/16/20 History 80 mcg] Calcium Carbonate/Vitamin D3 1 tab PO DAILY 03/21/16 05/16/20 History [Calcium 600-Vit D3 400 Caplet] Cholecalciferol [Vitamin D3] 1,000 unit PO BID 03/21/16 05/16/20 History Levothyroxine Sodium [Synthroid] 100 mcg PO MOTUWETHFRSA 03/21/16 05/16/20 History Simvastatin 20 mg PO HS 03/21/16 05/16/20 History amLODIPine BESYLATE [Norvasc] 5 mg PO HS 03/21/16 05/16/20 History diphenhydrAMINE [Benadryl] 50 mg PO HS PRN 03/21/16 05/16/20 History Folic Acid 1 tab PO DAILY 03/03/19 05/16/20 History metHOTREXate sodium [Methotrexate] 25 mg PO FARLEY 02/07/20 05/16/20 History Alendronate Sodium [Fosamax] 70 mg PO WEEKLY #12 tab 05/16/20 Rx Allergies Allergy/AdvReac Type Severity Reaction Status Date / Time No Known Allergies Allergy Verified 05/16/20 09:28 Exam Vital Signs Temp Pulse Resp BP Pulse Ox 05/16/20 09:18 98.3 F 85 18 135/71 96 Intake and Output 05/15/20 05/16/20 05/16/20 22:59 06:59 14:59 Other: Weight 92.533 kg Height 5 feet 5-1/2 inches, weight 204 pounds, BMI 33.4. This is a well-developed well-nourished white female who is alert and oriented times 3 in no acute distress. HEENT: Within normal limits. NECK: Supple without mass or thyromegaly. CHEST AND LUNGS: Clear to auscultation. HEART: Regular rate and rhythm. BREASTS: Are without mass or discharge. AXILLARY EXAM: Negative for adenopathy. BACK: Negative for CVA tenderness. ABDOMEN: Soft, nontender, without palpable masses. PELVIC EXAM: Normal external genitalia with mild to moderate atrophy. Cervix and vagina appear normal mild to moderate atrophy. There is no unusual discharge. There is no evidence of prolapse. The uterus is midposition, nongravid size and nontender. There are no palpable adnexal masses or tenderness. RECTAL EXAM: Rectovaginal exam is negative for mass or tenderness and is negative for occult blood. EXTREMITIES: Nontender. IMPRESSION: 1. 65-year-old menopausal female with normal gynecologic exam. 2. History of osteopenia doing well on alendronate. PLAN: 1. Pap smear was deferred since she had a normal one on 03/03/2019. 2. Self breast awareness was discussed with the patient. 3. Screening mammogram will be done today. 4. Osteoporosis prevention was discussed. I have stressed the importance of adequate calcium, vitamin D and regular exercise. Recommended amounts of calcium and vitamin D were also discussed. We will plan on repeating bone density test in 1 year. The prescription for alendronate 70 mg weekly has been sent to [facility] pharmacy in [place]. 5. She did receive her flu shot this fall. 6. The patient was advised to return in 1-2 years for her well woman examination. She states she would like to continue to come yearly.
--- NOTE | 2020-05-17 11:20 | MM ---
Reason for exam: screening (asymptomatic). Last mammogram was performed 1 year and 2 months ago. History: Patient is postmenopausal. Took hormonal contraceptives for 2 years. Physical Findings: A clinical breast exam by your physician is recommended on an annual basis and results should be correlated with mammographic findings. MG 3D Screening Mammo W/Cad Bilateral CC and MLO view(s) were taken. Prior study comparison: March 03, 2019, bilateral MG 3d screening mammo w/cad. November 26, 2016, bilateral MG 3d screening mammo w/cad. The breast tissue is heterogeneously dense. This may lower the sensitivity of mammography. Benign appearing bilateral calcifications. No significant changes when compared with prior studies. ASSESSMENT: Benign, BI-RAD 2 RECOMMENDATION: Routine screening mammogram of both breasts in 1 year.
== END | disposition home or self-care (01) ==
LOC: WWCWWP 09:08
PROVIDERS: ATTEND Obstetrics & Gynecology
DX: Z12.31 Encounter for screening mammogram for malignant neoplasm of breast (principal)
CPT/HCPCS: 77063; 77067

== ENCOUNTER → 2021-06-19 | Outpatient (CLI) | payer MEDICARE, BC ==
[2021-06-19 14:09] VITALS: BP 121/77; PULSE 80; RESP 18; TEMP 98.7
--- NOTE | 2021-06-19 16:08 | P.HPOB ---
History of Present Illness H&P Date: 06/19/21 Chief Complaint: The patient is here for her routine gynecologic exam and ma mmogram. This is a 66-year-old 013 with an LMP of 2008. The patient states she has had an occasional pain in the groin area when she is moved certain ways. This has occurred about 3-4 times during the past year. The pain stent to be very brief. The exception was last December she did experience that where she had slight discomfort for an entire month. She has not felt an actual bulge, but she wonders if could be some type of hernia. She is otherwise without complaints. Review of Systems The patient has lost 8 pounds over the last year. She denies respiratory, cardiac, or G.I. problems. Past Medical History Past Medical History: Asthma, COPD, Hyperlipidemia, Hypertension, Osteoarthritis (OA), Thyroid Disorder Additional Past Medical History / Comment(s): Hypothyroidism, psoriasis, and osteopenia.. 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 History of Any Multi-Drug Resistant Organisms: None Reported Past Surgical History: Section Additional Past Surgical History / Comment(s): colonoscopy 2016(3rd, next after 10yr per pt),c-sect x2, D&C x2 Past Anesthesia/Blood Transfusion Reactions: No Reported Reaction Past Psychological History: No Psychological Hx Reported Smoking Status: Never smoker Past Alcohol Use History: Rare Past Drug Use History: None Reported Additional History: She has been since 1972 and is not sexually active. 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 - Past Family History Mother Family Medical History: COPD, CVA/TIA, Myocardial Infarction ([place]) Additional Family Medical History / Comment(s): emphysema Father Family Medical History: COPD Additional Family Medical History / Comment(s): emphysema Brother(s) Family Medical History: CVA/TIA, Diabetes Mellitus Sister(s) Family Medical History: Hypertension, Thyroid Disorder Additional Family Medical History / Comment(s): thyroid ca,arrythmias Medications and Allergies Home Medications Medication Instructions Recorded Confirmed Type Beclomethasone Dipropionate [Qvar 1 puff INHALATION RT-BID 03/21/16 06/19/21 History 80 mcg] Calcium Carbonate/Vitamin D3 1 tab PO DAILY 03/21/16 06/19/21 History [Calcium 600-Vit D3 400 Caplet] Cholecalciferol [Vitamin D3] 1,000 unit PO BID 03/21/16 06/19/21 History Levothyroxine Sodium [Synthroid] 100 mcg PO TUWETHFRSA 03/21/16 06/19/21 History Simvastatin 20 mg PO HS 03/21/16 06/19/21 History amLODIPine BESYLATE [Norvasc] 5 mg PO HS 03/21/16 06/19/21 History diphenhydrAMINE [Benadryl] 50 mg PO HS PRN 03/21/16 06/19/21 History Folic Acid 1 tab PO DAILY 03/03/19 06/19/21 History metHOTREXate sodium [Methotrexate] 25 mg PO FARLEY 02/07/20 06/19/21 History Alendronate Sodium [Fosamax] 70 mg PO WEEKLY #12 tab 05/16/20 06/19/21 Rx Allergies Allergy/AdvReac Type Severity Reaction Status Date / Time No Known Allergies Allergy Verified 06/19/21 14:00 Exam Vital Signs Temp Pulse Resp BP Pulse Ox 06/19/21 14:03 98.7 F 80 18 121/77 99 Intake and Output 06/19/21 06/19/21 06/19/21 06:59 14:59 22:59 Other: Weight 88.904 kg Height 5 feet 5-1/2 inches, weight 196 pounds, BMI 32.1. This is a well-developed well-nourished white female who is alert and oriented times 3 in no acute distress. HEENT: Within normal limits. NECK: Supple without mass or thyromegaly. CHEST AND LUNGS: Clear to auscultation. HEART: Regular rate and rhythm. BREASTS: Are without mass or discharge. AXILLARY EXAM: Negative for adenopathy. BACK: Negative for CVA tenderness. ABDOMEN: Soft, nontender, without palpable masses. PELVIC EXAM: Normal external genitalia with mild atrophy. Cervix and vagina appear normal with mild atrophy. The cervix is somewhat stenotic secondary to atrophy. There is no unusual discharge. There is no evidence of prolapse. The uterus is midposition, nongravid size and nontender. There are no palpable adnexal masses or tenderness. There is no groin mass or pain with cough or Valsalva. RECTAL EXAM: Rectovaginal exam is negative for mass or tenderness and is negative for occult blood. EXTREMITIES: Nontender. IMPRESSION: 1. 66-year-old menopausal female with normal gynecologic exam. 2. Infrequent intermittent groin pains especially with certain movements without any significant physical findings on exam today. Differential diagnosis will include minimally symptomatic inguinal hernia or strained or pulled muscles. I doubt a gynecologic cause for these rare pains. 3. History of osteoporosis on Fosamax. PLAN: 1. Pap smear was performed. If this is negative we'll plan on Discontinuing Pap smears. 2. Self breast awareness was discussed with the patient. We have also discussed symptoms associated with inflammatory breast cancer. 3. Screening mammogram will be done today. 4. Osteoporosis management was discussed. I have stressed the importance of adequate calcium, vitamin D and regular exercise. Recommended amounts of calcium and vitamin D were also discussed. She will continue taking Fosamax in the electronic prescription for this will be sent to [facility] pharmacy in [place]. She has a bone density test scheduled next month and the order slip was given to the patient for this. We will continue to do yearly creatinine tests while she is on Fosamax since she had a borderline GFR at one point. The order slip was given to the patient for this. 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 5. She has completed her Covid vaccination series. 6. She was advised to return in one year for her annual well woman exam.
--- NOTE | 2021-06-21 12:07 | MM ---
Reason for exam: screening (asymptomatic). Last mammogram was performed 1 year and 1 month ago. History: Patient is postmenopausal. Took hormonal contraceptives for 2 years. Physical Findings: A clinical breast exam by your physician is recommended on an annual basis and results should be correlated with mammographic findings. MG 3D Screening Mammo W/Cad Bilateral CC and MLO view(s) were taken. Prior study comparison: May 16, 2020, bilateral MG 3d screening mammo w/cad. March 03, 2019, bilateral MG 3d screening mammo w/cad. There are scattered fibroglandular densities. There are benign appearing vascular calcifications bilaterally. No significant changes when compared with prior studies. ASSESSMENT: Benign, BI-RAD 2 RECOMMENDATION: Routine screening mammogram of both breasts in 1 year.
--- NOTE | 2021-06-27 13:05 | P.PN ---
Progress Note - Text Progress Note Date: 06/27/21 OUTPATIENT FOLLOW-UP NOTE TEST(S)/RESULTS: test results from 06/19/2021 include negative Pap smear and benign mammogram. METHOD OF NOTIFICATION: a message with these results was left on the patient's voice mail. PATIENT COMMENTS: DIAGNOSIS: negative Pap smear and benign mammogram. DISCUSSION: PLAN: the patient is to return in one year for her annual well woman exam.
== END ==
LOC: WWCWWP 13:46
PROVIDERS: ATTEND Obstetrics & Gynecology
DX: Z12.31 Encounter for screening mammogram for malignant neoplasm of breast (principal); R10.30 Lower abdominal pain, unspecified; J44.9 Chronic obstructive pulmonary disease, unspecified; E78.5 Hyperlipidemia, unspecified; I10 Essential (primary) hypertension; M19.90 Unspecified osteoarthritis, unspecified site; E03.9 Hypothyroidism, unspecified; Z79.890 Hormone replacement therapy; Z79.899 Other long term (current) drug therapy; Z87.310 Personal history of (healed) osteoporosis fracture
CPT/HCPCS: 77063; 77067

== ENCOUNTER → 2021-08-06 | Outpatient (CLI) | payer MEDICARE, BC ==
--- NOTE | 2021-08-06 09:42 | BD ---
EXAMINATION TYPE: Axial Bone Density DATE OF EXAM: 08/06/2021 COMPARISON: DEXA bone scan March 03, 2019 CLINICAL HISTORY: Postmenopausal female. Height: 5 FT 5 IN Weight: 194 FRAX RISK QUESTIONS: Alcohol (3 or more units per day): NO Family History (Parent hip fracture): YES Glucocorticoids (More than 3mos): YES (Ex: prednisone, prednisolone, methylprednisolone, dexamethasone, and hydrocortisone). History of Fracture in Adulthood: YES Secondary Osteoporosis: 1. Type 1 Diabetes: NO 2. Hyperthyroidism: NO 3. Menopause before 45: NO 4. Malnutrition: NO 5. Chronic liver disease: NO Rheumatoid Arthritis: NO Current Tobacco Use: NO RISK FACTORS HISTORY OF: Surgery to Spine/Hip(right/left)/Wrist (right/left): NO Family History of Osteoporosis: YES Active: YES Diet low in dairy products/other sources of calcium: NO Postmenopausal woman: YES Take estrogen and/or progesterone medications: NO Lost more than 2 inches in height since high school: NO Frequent falls: NO Poor Health: GOOD Hyperparathyroidism: NO Adrenal Insufficiency: NO MEDICATIONS: Thyroid Medications: YES Which medication: SYNTHROID How Long: OVER 30 YEARS Additional Medications: SYNTHROID, METHOTREXATE, SIMVASTATIN, AMLODIPINE, QVAR, FOLIC ACID, FOSAMAX, Additional History: ON FOSAMAX, FOR APPROX 2 YEARS EXAM MEASUREMENTS: Bone mineral densitometry was performed using the [employer] System. Bone mineral density as measured about the Lumbar spine is: ----- L1-L4(G/cm2): 1.107 T Score Values are as follows: ----- L2: -0.9 ----- L3: -0.7 ----- L4: -0.1 ----- L1-L4: -0.6 Bone mineral density has: INCREASED 8.0 % since study of: 2018 Bone mineral density about the R hip (g/cm2): 0.694 Bone mineral density about the L hip (g/cm2): 0.700 T Score values are as follows: -----R Neck: -2.5 -----L Neck: -2.4 -----R Total: -2.0 -----L Total: -1.8 Bone mineral density has: INCREASED 3.9 % since study of: 2018 IMPRESSION: Osteopenia (T Score between -2.5 and -1) in both hips is now present. There is slightly increased risk of fracture and the patient may be considered for treatment. Re-Screen 2-5 years. NOTE: T-SCORE=SD OF THE YOUNG ADULT MEAN.
--- NOTE | 2021-08-07 16:25 | P.PN ---
Progress Note - Text Progress Note Date: 08/07/21 OUTPATIENT FOLLOW-UP NOTE TEST(S)/RESULTS: Bone density test done on 08/06/2021 shows osteopenia with an 8% increase in the lumbar spine measurements and a 4% increase in the hip measurements. METHOD OF NOTIFICATION: The patient was notified by phone. PATIENT COMMENTS: The patient is happy to hear these results as it seems to indicate the alendronate is helping. DIAGNOSIS: History of osteoporosis with bone density improvement on alendronate. DISCUSSION: We will continue on with the alendronate until she has completed about 5 years with this medication. I have stressed the importance of getting adequate amounts of calcium, vitamin D and regular exercise. PLAN: As above. She was advised to return in one year for her annual well woman exam.
== END | disposition home or self-care (01) ==
LOC: RADBDWWP 07:51
PROVIDERS: ATTEND Obstetrics & Gynecology
DX: M81.0 Age-related osteoporosis without current pathological fracture (principal); M85.89 Other specified disorders of bone density and structure, multiple sites; Z78.0 Asymptomatic menopausal state
CPT/HCPCS: 77080

== ENCOUNTER 2022-02-13 09:27 | Day surgery (SDC) | payer MEDICARE, BC ==
[2022-02-11 10:09] VITALS: BMI 31.4
[~2022-02-13 09:27] MED LIST: LACTATED RINGERS 1,000 ML IV SCH; LIDOCAINE 1% (10MG/ML) FOR IV START INTRADERMA PRN
[2022-02-13] MEDS ORDERED: LACTATED RINGERS 1,000 ML IV ONE (09:45)
[2022-02-13 09:57] VITALS: TEMP 98.1
[2022-02-13] MEDS ORDERED: PROPOFOL 10 MG/ML 20 ML VIAL IV ONE (11:00)
[2022-02-13] MEDS ORDERED: MIDAZOLAM 2 MG/2 ML VIAL ONE (11:00)
[2022-02-13] MEDS ORDERED: fentaNYL (PF) 50 MCG/ML 2 ML AMP ONE (11:00)
--- NOTE | 2022-02-13 11:14 | P.PCN ---
Date of Procedure: 02/13/22 Procedure(s) Performed: BRIEF HISTORY: Patient is a 66-year-old pleasant white female scheduled for an elective colonoscopy as a part of evaluation of prior history of colon polyps. Her last colonoscopy was 5 years ago. PROCEDURE PERFORMED: Colonoscopy with snare polypectomy. PREOPERATIVE DIAGNOSIS: History of colon polyps. IV sedation per Anesthesia. PROCEDURE: After informed consent was obtained, the patient, was brought into the endoscopy unit. IV sedation was administered by Anesthesia under continuous monitoring. Digital rectal examination was normal. Initially the Olympus CF-160 flexible video colonoscope was then inserted in the rectum, gradually advanced into the cecum without any difficulty. Careful examination was performed as the scope was gradually being withdrawn. Ileocecal valve and the appendiceal orifice were visualized and appeared normal. Prep was excellent. Mucosa of the cecum, ascending colon, transverse colon, descending colon, appeared normal. In the sigmoid colon there was a 5 mm polyp that was removed by snare polypectomy. Rest of the sigmoid colon, and rectum appeared normal. Retroflexion was performed in the rectum and no lesions were seen. The patient tolerated the procedure well. IMPRESSION: 5 mm sigmoid: Polyp status post-polypectomy Rest of the colon appeared normal RECOMMENDATIONS: Findings of this examination were discussed with the patient as well as her family. She was advised to follow with the biopsy results. If the biopsy reveals adenoma she can have a repeat colonoscopy in 5 years..
[2022-02-13 11:47] VITALS: BP 125/76; PULSE 72; RESP 20
== END 2022-02-13 12:04 ==
LOC: ORWHC2ENDO 09:27
PROVIDERS: ATTEND Internal Medicine Gastroenterology
DX: Z12.11 Encounter for screening for malignant neoplasm of colon (principal); D12.5 Benign neoplasm of sigmoid colon; Z86.010 Personal history of colon polyps; J45.909 Unspecified asthma, uncomplicated; Z79.899 Other long term (current) drug therapy; Z79.890 Hormone replacement therapy; Z80.8 Family history of malignant neoplasm of other organs or systems; Z82.3 Family history of stroke; Z83.3 Family history of diabetes mellitus; Z83.6 Family history of other diseases of the respiratory system; Z82.49 Family history of ischemic heart disease and other diseases of the circulatory system
CPT/HCPCS: 88305; 45385; J2250; J3010; J2704

== ENCOUNTER → 2022-05-21 | Outpatient (CLI) | payer MEDICARE, BC ==
--- NOTE | 2022-05-21 09:10 | P.PN ---
Progress Note - Text Progress Note Date: 05/21/22 Chief Complaint: Lump noted in right breast after minor trauma 1 month ago. HPI: This is a 67-year-old with an LMP of 2008. The patient states that about 1 month ago, in the middle of the night, she accidentally ran into a wall and there was minor trauma to the right breast. She noticed a bruised area and a slight lump. After 2 or 3 weeks, she still noticed a bruised area and made an appointment for a breast check. Since the time she made the appointment, she states it is less noticeable. She denies nipple discharge or blood. She is otherwise without complaints. She states she did not notice any unusual breast lump prior to the minor trauma. ROS: She denies fever. She denies respiratory, cardiac, or GI problems. PE: Blood pressure: 152/80, Height: 5 feet 6 inches, Weight: 194 pounds, Temperature: 98.1, Pulse: 88. Pulse oximeter 100%. This is a well developed, well nourished, white female who is alert and orientedx3, in no acute distress. Right breast: There is a slight discoloration consistent with a resolving bruised measuring approximately 3 cm in diameter and is at about to the 2 o'clock position of the right breast. There is prominent fibrous tissue throughout the breast with no discernible mass. The area is nontender. There is no nipple discharge. There is no unusual puckering or dimpling. The right axilla is negative for mass or tenderness. Impression: 1. 67-year-old menopausal female with resolving right breast lump/bruise following minor trauma 1 month ago. This seems to be a non-neoplastic condition and most likely represents a simple resolving bruise following minor trauma. There is no suspicious mass on exam. Plan: 1. The patient will return in approximately 1 month for her annual examination and at that time we will reevaluate the breast. If there is any evidence of a breast lump or mass at that time, we will plan on doing a diagnostic mammogram. Otherwise, bilateral screening mammogram will be done at that time. 2. I have given the patient reassurance that I do not believe this represents any type of breast neoplasm. Time spent with the patient: 10 minutes
[2022-05-21 09:13] VITALS: BP 152/80; PULSE 83; RESP 17; TEMP 98.1
== END ==
LOC: WWCWWP 08:29
PROVIDERS: ATTEND Obstetrics & Gynecology
DX: N63.10 Unspecified lump in the right breast, unspecified quadrant (principal); Z78.0 Asymptomatic menopausal state

== ENCOUNTER → 2022-07-30 | Outpatient (CLI) | payer MEDICARE, BC ==
[2022-07-30 09:23] VITALS: BP 122/75; PULSE 72; RESP 17; TEMP 98.3
--- NOTE | 2022-07-30 10:14 | P.HPOB ---
History of Present Illness H&P Date: 07/30/22 Chief Complaint: The patient is here for her routine gynecologic exam and ma mmogram. This is a 67-year-old 013 with an LMP of 2008. The patient is without gynecologic complaints. She was seen about 3 months ago for a bruised right breast after running into a wall. She states this has completely resolved. Review of Systems The patient has gained 4 pounds over the last year. She denies respiratory, cardiac, or G.I. problems. Past Medical History Past Medical History: Asthma, COPD, Hyperlipidemia, Hypertension, Osteoarthritis (OA), Thyroid Disorder Additional Past Medical History / Comment(s): Hypothyroidism, psoriasis, and osteopenia., anemia. 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 History of Any Multi-Drug Resistant Organisms: None Reported Past Surgical History: Section Additional Past Surgical History / Comment(s): colonoscopy 2021(next after 5yr) ,c-sect x2, D&C x2 Past Anesthesia/Blood Transfusion Reactions: No Reported Reaction Past Psychological History: No Psychological Hx Reported Smoking Status: Never smoker Past Alcohol Use History: Rare Past Drug Use History: None Reported Additional History: She has been since 1972 and is not sexually active. 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 - Past Family History Mother Family Medical History: COPD, CVA/TIA, Myocardial Infarction ([place]) Additional Family Medical History / Comment(s): emphysema Father Family Medical History: COPD Additional Family Medical History / Comment(s): emphysema Brother(s) Family Medical History: CVA/TIA, Diabetes Mellitus Sister(s) Family Medical History: Hypertension, Thyroid Disorder Additional Family Medical History / Comment(s): thyroid ca,arrythmias Medications and Allergies Home Medications Medication Instructions Recorded Confirmed Type Beclomethasone Dipropionate [Qvar 1 puff INHALATION RT-BID 03/21/16 07/30/22 History 80 mcg] Cholecalciferol [Vitamin D3] 1,000 unit PO BID 03/21/16 07/30/22 History Levothyroxine Sodium [Synthroid] 100 mcg PO TUWETHFRSA 03/21/16 07/30/22 History Simvastatin 20 mg PO HS 03/21/16 07/30/22 History amLODIPine BESYLATE [Norvasc] 5 mg PO HS 03/21/16 07/30/22 History diphenhydrAMINE [Benadryl] 100 mg PO HS PRN 03/21/16 07/30/22 History Folic Acid 1 tab PO DAILY 03/03/19 07/30/22 History metHOTREXate sodium [Methotrexate] 20 mg PO FARLEY 02/07/20 07/30/22 History Alendronate Sodium [Fosamax] 70 mg PO WEEKLY #12 tab 06/19/21 07/30/22 Rx Calcium Citrate 1 tab PO BID 02/11/22 07/30/22 History Ferrous Sulfate [Iron (65 MG 325 mg PO DAILY 05/21/22 07/30/22 History Elemental)] Allergies Allergy/AdvReac Type Severity Reaction Status Date / Time No Known Allergies Allergy Verified 07/30/22 09:18 Exam Vital Signs Temp Pulse Resp BP Pulse Ox 07/30/22 09:20 98.3 F 72 17 122/75 97 Intake and Output 07/29/22 07/30/22 07/30/22 22:59 06:59 14:59 Other: Weight 90.718 kg Height 5 feet 6 inches, weight 200 pounds, BMI 32.3. This is a well-developed well-nourished white female who is alert and oriented times 3 in no acute distress. HEENT: Within normal limits. NECK: Supple without mass or thyromegaly. CHEST AND LUNGS: Clear to auscultation. HEART: Regular rate and rhythm. BREASTS: Are without mass or discharge. AXILLARY EXAM: Negative for adenopathy. BACK: Negative for CVA tenderness. ABDOMEN: Soft, nontender, without palpable masses. PELVIC EXAM: Normal external genitalia with mild to moderate atrophy. Cervix and vagina appear normal with mild atrophy. There is no unusual discharge. There is no evidence of prolapse. The uterus is midposition, nongravid size and nontender. There are no palpable adnexal masses or tenderness. RECTAL EXAM: Rectovaginal exam is negative for mass or tenderness and is negative for occult blood. EXTREMITIES: Nontender. IMPRESSION: 1. 67-year-old menopausal female with normal gynecologic exam. 2. Resolution of the right breast bruising noted 2-3 months ago. 3. History of osteoporosis on Fosamax since 2019. PLAN: 1. Pap smears have been discontinued. 2. Self breast awareness was discussed with the patient. We have also discussed symptoms associated with inflammatory breast cancer. 3. Screening mammogram will be done today. 4. Osteoporosis management was discussed. I have stressed the importance of adequate calcium, vitamin D and regular exercise. Recommended amounts of calcium and vitamin D were also discussed. We will plan on repeating bone density testing in 1-2 years. We will continue alendronate for a total of 5 years. The electronic prescription will be sent to [facility] in [place]. 5. She will continue to have regular blood work done through her c iron worker, Dr. Zaragoza. On 05/13/2022 she had a normal creatinine and normal GFR. On 07/16/2022 creatinine was 1.1 and GFR was 54.8. Since the last one was borderline, it will be important that this be followed closely. She states she will continue to have this done about every 3 months. She will let me know if there are increases in the creatinine. 6. She was advised to return in one year for her annual well woman exam.
--- NOTE | 2022-07-31 12:18 | MM ---
Reason for Exam: Screening (asymptomatic). Last mammogram was performed 1 year(s) and 1 month(s) ago. Patient History: Menarche at age 10. First Full-Term at age 19. Postmenopausal. Patient used Hormonal Contraceptives for 2 years. Risk Values: Pretty 5 year model risk: 1.7%. NCI Lifetime model risk: 5.5%. Prior Study Comparison: 03/03/2019 Bilateral Screening Mammogram, [facility]. 05/16/2020 Bilateral Screening Mammogram, [facility]. 06/19/2021 Bilateral Screening Mammogram, [facility]. Tissue Density: The breast tissue is almost entirely fat. Findings: Analyzed By CAD. There is no suspicious group of microcalcifications or new suspicious mass in either breast. Overall Assessment: Negative, BI-RAD 1 Management: Screening Mammogram of both breasts in 1 year. A clinical breast exam by your physician is recommended on an annual basis and results should be correlated with mammographic findings. [facility] will attempt to contact patient to return for supplemental views and ultrasound if indicated. Electronically signed and approved by: Shaan Montiel DO
== END ==
LOC: WWCWWP 09:11
PROVIDERS: ATTEND Obstetrics & Gynecology
DX: Z12.31 Encounter for screening mammogram for malignant neoplasm of breast (principal); Z01.411 Encounter for gynecological examination (general) (routine) with abnormal findings; Z87.310 Personal history of (healed) osteoporosis fracture; J44.9 Chronic obstructive pulmonary disease, unspecified; E78.5 Hyperlipidemia, unspecified; I10 Essential (primary) hypertension; M19.90 Unspecified osteoarthritis, unspecified site; E03.9 Hypothyroidism, unspecified; Z79.890 Hormone replacement therapy
CPT/HCPCS: 77063; 77067

== ENCOUNTER 2023-05-07 14:51 | Emergency (ER) | payer OTHER, MEDICARE, BC ==
[2023-05-07 15:14] VITALS: BP 143/79; PULSE 94; RESP 18; TEMP 100.2
[2023-05-07] MEDS ORDERED: IBUPROFEN 800 MG TAB PO STA (15:59)
[2023-05-07] MEDS ORDERED: ACETAMINOPHEN TAB 500 MG TAB PO STA (15:59)
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
== END 2023-05-07 16:22 | disposition home or self-care (01) ==
LOC: EC 14:51
DX: S39.012A Strain of muscle, fascia and tendon of lower back, initial encounter (principal); I10 Essential (primary) hypertension; J44.89 Other specified chronic obstructive pulmonary disease; E03.9 Hypothyroidism, unspecified; E78.5 Hyperlipidemia, unspecified; Z79.51 Long term (current) use of inhaled steroids; Z79.890 Hormone replacement therapy; Z79.899 Other long term (current) drug therapy; V89.2XXA Person injured in unspecified motor-vehicle accident, traffic, initial encounter; Y92.410 Unspecified street and highway as the place of occurrence of the external cause
CPT/HCPCS: 99284

== ENCOUNTER → 2023-05-23 | Outpatient (CLI) | payer MEDICARE, BC ==
[2023-05-23 12:19] LABS: African American GFR (CKD) 43 (>60 ml/min/1.73 sqM); Blood Urea Nitrogen 21 mg/dL (7-17); Non-African American GFR(CKD) 37 (>60 ml/min/1.73 sqM)
--- NOTE | 2023-05-23 14:32 | XR ---
EXAMINATION TYPE: XR chest 2V DATE OF EXAM: 05/23/2023 2:27 PM COMPARISON: Chest radiographs from 10/01/2011 TECHNIQUE: XR chest 2V Frontal and lateral views of the chest. CLINICAL INDICATION:Female, 68 years old with history of I26.99 PE; FINDINGS: Lungs/Pleura: There is no evidence of pleural effusion, focal consolidation, or pneumothorax. Pulmonary vascularity: Unremarkable. Heart/mediastinum: Cardiomediastinal silhouette is unremarkable. Musculoskeletal: No acute osseous pathology. IMPRESSION: No acute cardiopulmonary disease/process.
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
== END | disposition home or self-care (01) ==
LOC: RADCTMAIN 11:30
PROVIDERS: ATTEND Internal Medicine
DX: I26.99 Other pulmonary embolism without acute cor pulmonale (principal)
CPT/HCPCS: 82565; 84520; 71046; 78582; A9540; A9567

== ENCOUNTER → 2023-06-10 | Outpatient (CLI) | payer MEDICARE, BC ==
--- NOTE | 2023-06-10 12:56 | US ---
EXAMINATION TYPE: US carotid duplex BILAT DATE OF EXAM: 06/10/2023 COMPARISON: NONE CLINICAL INDICATION: Female, 68 years old with history of I65.23 OCCLUSION AND STENOSIS OF BILATERAL CAROTID; TECHNIQUE: Carotid duplex ultrasound examination. Indirect Doppler criteria was utilized. FINDINGS: EXAM MEASUREMENTS: RIGHT: Peak Systolic Velocity (PSV) cm/sec ----- Right CCA: 72.3 ----- Right ICA: 102.0 ----- Right ECA: 122.0 ICA/CCA ratio: 1.4 RIGHT: End Diastole cm/sec ----- Right CCA: 16.7 ----- Right ICA: 33.4 ----- Right ECA: 12.5 LEFT: Peak Systolic Velocity (PSV) cm/sec ----- Left CCA: 81.9 ----- Left ICA: 110.0 ----- Left ECA: 121.0 ICA/CCA ratio: 1.3 LEFT: End Diastole cm/sec ----- Left CCA: 14.3 ----- Left ICA: 29.3 ----- Left ECA: 11.1 VERTEBRALS (direction of flow): Right Vertebral: Antegrade Left Vertebral: Antegrade Rhythm: Normal No significant stenosis IMPRESSION: 1. Atheromatous plaquing without significant flow-limiting stenosis based on velocities. Criteria for Assigning % of Stenosis / Diameter reduction (Estimation based on the indirect measurements of the internal carotid artery velocities (ICA PSV). 1. Normal (no stenosis)=ICA PSV < 125 cm/s: ratio < 2.0: ICA EDV<40 cm/s. 2. Less than 50% stenosis=ICA PSV < 125 cm/s: ratio < 2.0: ICA EDV<40 cm/s. 3. 50 to 69% stenosis=ICA PSV of 125 to 230 cm/s: ration 2.0 ? 4.0: ICA EDV 40-100 cm/s. 4. Greater than 70% stenosis to near occlusion= ICA PSV > 230 cm/s: ratio > 4.0: ICA EDV > 100 cm/s. 5. Near occlusion= ICA PSV velocities may be low or undetectable: variable ratio and ICA EDV. 6. Total occlusion=unable to detect flow.
== END | disposition home or self-care (01) ==
LOC: RADUSWWP 10:44
PROVIDERS: ATTEND Internal Medicine
DX: I65.23 Occlusion and stenosis of bilateral carotid arteries (principal); I67.2 Cerebral atherosclerosis
CPT/HCPCS: 93880

== ENCOUNTER → 2023-08-12 | Outpatient (CLI) | payer MEDICARE, BC ==
[2023-08-12 14:05] VITALS: BP 123/80; PULSE 79; RESP 16; TEMP 98.1
--- NOTE | 2023-08-12 15:04 | P.HPOB ---
History of Present Illness H&P Date: 08/12/23 Chief Complaint: The patient is here for her routine gynecologic exam and ma mmogram. This is a 68-year-old -0-1-3 with an LMP of 2009. The patient is without gynecologic complaints. Review of Systems The patient has lost 4 pounds over the last year. She denies respiratory, cardiac, or G.I. problems. Past Medical History Past Medical History: Asthma, COPD, Hyperlipidemia, Hypertension, Osteoarthritis (OA), Thyroid Disorder Additional Past Medical History / Comment(s): Hypothyroidism, psoriasis, osteoporosis(on Fosamax since 03/2019), anemia. Renal insufficiency. 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 History of Any Multi-Drug Resistant Organisms: None Reported Past Surgical History: Section Additional Past Surgical History / Comment(s): colonoscopy 2021(next after 5yr) ,c-sect x2, D&C x2 Past Anesthesia/Blood Transfusion Reactions: No Reported Reaction Past Psychological History: No Psychological Hx Reported Smoking Status: Never smoker Past Alcohol Use History: Rare Past Drug Use History: None Reported Additional History: She has been since 1972 and is not sexually active. 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 - Past Family History Mother Family Medical History: COPD, CVA/TIA, Myocardial Infarction ([place]) Additional Family Medical History / Comment(s): emphysema Father Family Medical History: COPD Additional Family Medical History / Comment(s): emphysema Brother(s) Family Medical History: CVA/TIA, Diabetes Mellitus Sister(s) Family Medical History: Hypertension, Thyroid Disorder Additional Family Medical History / Comment(s): thyroid ca,arrythmias Medications and Allergies Home Medications Medication Instructions Recorded Confirmed Type Cholecalciferol [Vitamin D3] 1,000 unit PO BID 03/21/16 08/12/23 History Levothyroxine Sodium [Synthroid] 100 mcg PO TUWETHFRSA 03/21/16 08/12/23 History Simvastatin 20 mg PO HS 03/21/16 08/12/23 History diphenhydrAMINE [Benadryl] 100 mg PO HS PRN 03/21/16 08/12/23 History Calcium Citrate 1 tab PO BID 02/11/22 08/12/23 History Alendronate Sodium 70 mg PO WEEKLY #12 tab 07/30/22 08/12/23 Rx Losartan [Cozaar] 50 mg PO DAILY 08/12/23 08/12/23 History inFLIXimab [Remicade] 1 injection INJ QMONTHLY 08/12/23 08/12/23 History Allergies Allergy/AdvReac Type Severity Reaction Status Date / Time No Known Allergies Allergy Verified 08/12/23 14:01 Exam Vital Signs Temp Pulse Resp BP Pulse Ox 08/12/23 14:02 98.1 F 79 16 123/80 98 Intake and Output 08/11/23 08/12/23 08/12/23 22:59 06:59 14:59 Other: Weight 88.904 kg Height 5 feet 5 inches, weight 196 pounds, BMI 32.6. This is a well-developed well-nourished white female who is alert and oriented times 3 in no acute distress. HEENT: Within normal limits. NECK: Supple without mass or thyromegaly. CHEST AND LUNGS: Clear to auscultation. HEART: Regular rate and rhythm. BREASTS: Are without mass or discharge. AXILLARY EXAM: Negative for adenopathy. BACK: Negative for CVA tenderness. ABDOMEN: Soft, nontender, without palpable masses. PELVIC EXAM: Normal external genitalia with mild to moderate atrophy. Cervix and vagina appear normal with moderate atrophy. There is no unusual discharge. There is no evidence of prolapse. The uterus is midposition, nongravid size and nontender. There are no palpable adnexal masses or tenderness. RECTAL EXAM: Rectovaginal exam is negative for mass or tenderness and is negative for occult blood. EXTREMITIES: Nontender. IMPRESSION: 1. 68-year-old menopausal female exam with normal gynecologic exam. 2. History of osteoporosis on Fosamax for 4 years. PLAN: 1. Pap smears have been discontinued. 2. Self breast awareness was discussed with the patient. We have also discussed symptoms associated with inflammatory breast cancer. 3. Screening mammogram will be done today. 4. Osteoporosis management was discussed. I have stressed the importance of adequate calcium, vitamin D and regular exercise. Recommended amounts of calcium and vitamin D were also discussed. Bone density testing will be done today. Her most recent creatinine was done on 07/29/2023 through her PCP, Dr. Castellanos. The creatinine was 1.26 and the GFR was 46.3. She understands that if the GFR is below 35 I will probably have her discontinue the alendronate. She states she has this testing done on a regular basis through her PCP or endocrino logist. We will continue the Fosamax through the end of this year and we will plan on having a trial off of the Fosamax since that will be 5 years of being on the medication. Electronic prescription will be sent to [facility] pharmacy in [place]. 5. She was advised to return in one year for her annual well woman exam.
--- NOTE | 2023-08-12 19:32 | BD ---
EXAMINATION TYPE: Axial Bone Density DATE OF EXAM: 08/12/2023 CLINICAL HISTORY: 68 years old Female. ICD-10 CODE: Z78.0 POST MENOPAUSAL WITHOUT HRT Height: 65 Weight: 193.9 FRAX RISK QUESTIONS: Alcohol (3 or more units per day): no Family History (Parent hip fracture): yes Glucocorticoids (More than 3mos): no (Ex: prednisone, prednisolone, methylprednisolone, dexamethasone, and hydrocortisone). History of Fracture in Adulthood: yes Secondary Osteoporosis: 1. Type 1 Diabetes: no 2. Hyperthyroidism: no 3. Menopause before 45: no 4. Malnutrition: no 5. Chronic liver disease: no Rheumatoid Arthritis: no Current Tobacco Use: no RISK FACTORS HISTORY OF: Surgery to Spine/Hip(right/left)/Wrist (right/left): no MEDICATIONS: Thyroid Medications: synthroid How Long: long time Osteoporosis Medications: fosamax How Long: since 2019 EXAM MEASUREMENTS: Bone mineral densitometry was performed using the [employer]. Bone mineral density as measured about the Lumbar spine is: ----- L1-L4(G/cm2): 1.098 T Score Values are as follows: ----- L1: -1.4 ----- L2: -0.5 ----- L3: -0.7 ----- L4: -0.4 ----- L1-L4: -0.7 Z Score Values are as follows: ----- L1: -0.5 ----- L2: 0.4 ----- L3: 0.2 ----- L4: 0.5 ----- L1-L4: 0.2 Bone mineral density has: decreased -0.8 % since study of: 08.06.2021 Bone mineral density about the R hip (g/cm2): [id number] Bone mineral density about the L hip (g/cm2): 0.767 T Score values are as follows: -----R Neck: -2.3 -----L Neck: -2.2 -----R Total: -1.9 -----L Total: -1.9 Z Score values are as follows: -----R Neck: -1.1 -----L Neck: -1.1 -----R Total: -1.0 -----L Total: -1.0 Bone mineral density has: decreased -0.3 % since study of: 08.06.2021 FRAX%s: The graph provided illustrates a 31.2% chance for a major osteoporotic fx and a 7.8% chance f or the hips probability for fx in 10 years time. IMPRESSION: Osteopenia (T Score between -2.5 and -1). There is slightly increased risk of fracture and the patient may be considered for treatment. Re-Screen 2-5 years. NOTE: T-SCORE=SD OF THE YOUNG ADULT MEAN.
--- NOTE | 2023-08-13 19:59 | MM ---
Reason for Exam: Screening (asymptomatic). Last screening mammogram was performed 12 month(s) ago. Patient History: Menarche at age 10. First Full-Term at age 19. Postmenopausal. Patient used Hormonal Contraceptives for 2 years. Risk Values: Pretty 5 year model risk: 1.7%. NCI Lifetime model risk: 5.2%. Prior Study Comparison: 05/16/2020 Bilateral Screening Mammogram, [facility]. 06/19/2021 Bilateral Screening Mammogram, [facility]. 07/30/2022 Bilateral MG 3D screening mammo w/cad, [facility]. Tissue Density: There are scattered fibroglandular densities. Findings: Analyzed By CAD. Unchanged bilateral areas of asymmetric density. Benign vascular calcifications are redemonstrated. There is no suspicious group of microcalcifications or new suspicious mass in either breast. Overall Assessment: Benign, BI-RAD 2 Management: Screening Mammogram of both breasts in 1 year. . Patient should continue monthly self-breast exams. A clinical breast exam by your physician is recommended on an annual basis. This exam should not preclude additional follow-up of suspicious palpable abnormalities. Note on Pretty scores and lifetime risk: 1. A Pretty score greater than 3% is considered moderate risk. If this is the case, consider specialist referral to assess eligibility for a risk reducing agent. 2. If overall lifetime risk for the development of breast cancer is 20% or higher, the patient may qualify for future screening with alternating mammogram and breast MRI. Electronically signed and approved by: Tucker Choi M.D. Radiologist
== END ==
LOC: WWCWWP 13:45
PROVIDERS: ATTEND Obstetrics & Gynecology
DX: Z12.31 Encounter for screening mammogram for malignant neoplasm of breast (principal); M81.8 Other osteoporosis without current pathological fracture; E03.9 Hypothyroidism, unspecified; E78.5 Hyperlipidemia, unspecified; I10 Essential (primary) hypertension; J44.89 Other specified chronic obstructive pulmonary disease; M19.90 Unspecified osteoarthritis, unspecified site; Z79.899 Other long term (current) drug therapy; Z78.0 Asymptomatic menopausal state; Z79.890 Hormone replacement therapy
CPT/HCPCS: 77063; 77067; 77080

== ENCOUNTER → 2024-07-26 | Outpatient (CLI) | payer MEDICARE, BC ==
--- NOTE | 2024-07-26 16:23 | US ---
EXAMINATION TYPE: US kidneys/renal and bladder DATE OF EXAM: 07/26/2024 COMPARISON: NONE CLINICAL INDICATION: Female, 69 years old with history of N28.9 ABNORMAL KIDNEY FUNCTION; Patient den ies any signs, symptoms, or relevant history TECHNIQUE: Grayscale imaging of the bilateral kidneys and urinary bladder: FINDINGS: EXAM MEASUREMENTS: Right Kidney: 9.7 x 4.3 x 3.5 cm Left Kidney: 9.3 x 5.2 x 4.9 cm Post Void Residual Volume: NA mL Right Kidney: WNL Left Kidney: WNL Bladder: Not fully distended Bilateral Jets seen: Not able to assess Normal Post Void Residual: NA There is no evidence for hydronephrosis at this point in time. No nephrolithiasis is seen. No charlene s are identified. The urinary bladder is anechoic. IMPRESSION: 1. No acute ultrasound abnormality renal ultrasound [facility], , 07/26/2024 4:21 PM
== END | disposition home or self-care (01) ==
LOC: RADUSWWP 13:13
PROVIDERS: ATTEND Internal Medicine
DX: N28.9 Disorder of kidney and ureter, unspecified (principal)
CPT/HCPCS: 76770

== ENCOUNTER → 2024-10-27 | Outpatient (CLI) | payer MEDICARE, BC ==
[2024-10-27 11:46] VITALS: BP 127/78; PULSE 78; RESP 16; TEMP 98
--- NOTE | 2024-10-27 12:18 | P.HPOB ---
History of Present Illness H&P Date: 10/27/24 Chief Complaint: The patient is here for her routine gynecologic exam and ma mmogram. This is a 77-year-old -0-1-3 with an LMP of 2008. The patient is without gynecologic complaints. She has completed 5 years use of alendronate for osteoporosis. She discontinued this in August 2024. She was advised to discontinue this because of decreasing GFR of 44 done by her PCP. Review of Systems The patient has lost 3 pounds over the last year. She denies respiratory, cardiac, or G.I. problems. Past Medical History Past Medical History: Asthma, COPD, Hyperlipidemia, Hypertension, Osteoarthritis (OA), Thyroid Disorder Additional Past Medical History / Comment(s): Hypothyroidism, psoriasis, osteoporosis(Fosamax since 03/2019-), anemia. Renal insufficiency. 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 History of Any Multi-Drug Resistant Organisms: None Reported Past Surgical History: Section Additional Past Surgical History / Comment(s): colonoscopy 2021(next after 5yr) ,c-sect x2, D&C x2 Past Anesthesia/Blood Transfusion Reactions: No Reported Reaction Past Psychological History: No Psychological Hx Reported Smoking Status: Never smoker Past Alcohol Use History: Rare (0-1 drink per year.) Past Drug Use History: None Reported Additional History: She has been since 1972 and is not sexually active. 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 - Past Family History Mother Family Medical History: COPD, CVA/TIA, Myocardial Infarction (MD) Additional Family Medical History / Comment(s): emphysema Father Family Medical History: COPD Additional Family Medical History / Comment(s): emphysema Brother(s) Family Medical History: CVA/TIA, Diabetes Mellitus Sister(s) Family Medical History: Hypertension, Thyroid Disorder Additional Family Medical History / Comment(s): thyroid ca,arrythmias Medications and Allergies Home Medications Medication Instructions Recorded Confirmed Type Cholecalciferol [Vitamin D3] 1,000 unit PO BID 03/21/16 10/27/24 History Levothyroxine Sodium [Synthroid] 100 mcg PO TUWETHFRSA 03/21/16 10/27/24 History Simvastatin 20 mg PO HS 03/21/16 10/27/24 History diphenhydrAMINE [Benadryl] 100 mg PO HS PRN 03/21/16 10/27/24 History Losartan [Cozaar] 50 mg PO DAILY 08/12/23 10/27/24 History Calcium Carbonate [Tums Ultra 470 mg PO BID 10/27/24 10/27/24 History Strength] Dapagliflozin Propanediol [Farxiga] 5 mg PO DAILY 10/27/24 10/27/24 History Allergies Allergy/AdvReac Type Severity Reaction Status Date / Time No Known Allergies Allergy Verified 10/27/24 11:33 Exam Vital Signs Temp Pulse Resp BP Pulse Ox 10/27/24 11:38 98 F 78 16 127/78 99 Intake and Output 10/26/24 10/27/24 10/27/24 22:59 06:59 14:59 Other: Weight 87.543 kg Height 5 feet 6 inches, weight 193 pounds, BMI 31.2. This is a well-developed well-nourished white female who is alert and oriented times 3 in no acute distress. HEENT: Within normal limits. NECK: Supple without mass or thyromegaly. CHEST AND LUNGS: Clear to auscultation. HEART: Regular rate and rhythm. BREASTS: Are without mass or discharge. AXILLARY EXAM: Negative for adenopathy. BACK: Negative for CVA tenderness. ABDOMEN: Soft, nontender, without palpable masses. PELVIC EXAM: Normal external genitalia with mild to moderate atrophy. Cervix and vagina appear normal with mild atrophy. There is no unusual discharge. There is no evidence of prolapse. The uterus is midposition, nongravid size and nontender. There are no palpable adnexal masses or tenderness. RECTAL EXAM: Rectovaginal exam is negative for mass or tenderness and is negative for occult blood. EXTREMITIES: Nontender. IMPRESSION: 1. 69-year-old menopausal female with normal gynecologic exam. 2. History of osteoporosis status post 5 years use of alendronate discontinued in August 2024. PLAN: 1. Pap smears have been discontinued. 2. Self breast awareness was discussed with the patient. We have also discussed symptoms associated with inflammatory breast cancer. 3. Screening mammogram will be done today. 4. Osteoporosis management was discussed. I have stressed the importance of adequate calcium, vitamin D and regular exercise. Recommended amounts of calcium and vitamin D were also discussed. Alendronate has been discontinued as above. We will plan on repeating the bone density test in 1 year since her last one was done last year. She will plan on doing this on the day of her next annual well woman examination. 5. The patient states earlier in the year she had an episode of a very rapid heart rate of approximately 180. Her horse identifier ordered some type of cafeteria monitor which she used for 2 weeks. She has not gotten results from the horse identifier. I have stressed the importance of contacting her horse identifier to discuss the results. Her heart today had a regular rate and rhythm. 6. She was advised to return in one year for her annual well woman exam.
--- NOTE | 2024-10-27 12:38 | MM ---
Reason for Exam: Screening (asymptomatic). Last mammogram was performed 1 year(s) and 3 month(s) ago. Patient History: Menarche at age 10. First Full-Term at age 19. Postmenopausal. Patient used Hormonal Contraceptives for 2 years. Risk Values: Pretty 5 year model risk: 1.7%. NCI Lifetime model risk: 5.0%. Prior Study Comparison: 06/19/2021 Bilateral Screening Mammogram, [facility]. 07/30/2022 Bilateral MG 3D screening mammo w/cad, [facility]. 08/12/2023 Bilateral MG 3D screening mammo w/cad, [facility]. Tissue Density: There are scattered areas of fibroglandular density. Findings: Analyzed By CAD. There is no suspicious group of microcalcifications or new suspicious mass in either breast. Overall Assessment: Negative, BI-RAD 1 Management: Screening Mammogram of both breasts in 1 year. . Patient should continue monthly self-breast exams. A clinical breast exam by your physician is recommended on an annual basis. This exam should not preclude additional follow-up of suspicious palpable abnormalities. Note on Pretty scores and lifetime risk: 1. A Pretty score greater than 3% is considered moderate risk. If this is the case, consider specialist referral to assess eligibility for a risk reducing agent. 2. If overall lifetime risk for the development of breast cancer is 20% or higher, the patient may qualify for future screening with alternating mammogram and breast MRI. [facility], , 10/27/2024 12:35 PM. Electronically signed and approved by: Jose White M.D. Radiologis
== END ==
LOC: WWCWWP 11:03
PROVIDERS: ATTEND Obstetrics & Gynecology
DX: Z12.31 Encounter for screening mammogram for malignant neoplasm of breast (principal); Z01.419 Encounter for gynecological examination (general) (routine) without abnormal findings; Z78.0 Asymptomatic menopausal state; Z87.310 Personal history of (healed) osteoporosis fracture
CPT/HCPCS: 77063; 77067

== ENCOUNTER 2024-12-02 05:38 | Day surgery (SDC) | payer MEDICARE, BC ==
[2024-12-01 10:30] VITALS: BMI 30.7
[2024-12-02] MEDS ORDERED: fentaNYL (PF) 50 MCG/ML 5 ML AMP IVP PRN (05:59)
[2024-12-02] MEDS ORDERED: MIDAZOLAM 2 MG/2 ML VIAL IV PRN (05:59)
[2024-12-02] MEDS ORDERED: BENZOCAINE SPRAY 1 EACH MM SCH (05:59)
[2024-12-02] MEDS ORDERED: SODIUM CHLORIDE 0.9% 500 ML 500 ML IV SCH (06:00)
[2024-12-02 06:23] VITALS: RESP 16; TEMP 97.7
[2024-12-02] MEDS: IV FLUID CONTINUATION 500 ML IV ONE (07:14)
[2024-12-02] MEDS: BENZOCAINE SPRAY 1 EACH MUCOUS MEM ONE ×2 (07:15→07:18)
[2024-12-02] MEDS: fentaNYL (PF) 50 MCG/ML 2 ML AMP IVP ONE (07:18)
[2024-12-02] MEDS: MIDAZOLAM 2 MG/2 ML VIAL IVP ONE ×2 (07:18→07:19)
--- NOTE | 2024-12-02 07:35 | P.PCN ---
Date of Procedure: 12/02/24 Description of Procedure: Indication: Mitral regurgitation Procedure Description: After explaining the procedure to the patient, it's risk and complications, blood pressure, heart rate and O2 saturation were monitored. The throat was sprayed with Cetacaine. Patient received 3 mg intravenous Versed, 50 mcg intravenous fentanyl. The probe was introduced into the esophagus without difficulty. Images were obtained. Following that, the probe was removed. There was no immediate complication. Findings: Left atrial size is dilated, left atrial appendage is normal. Left ventricular size and systolic function are normal. The aortic valve, tricuspid valve and pulmonic valve appears to be normal. Mild thickening of the mitral valve leaflets was noted. No pericardial effusion was noted. Descending thoracic aorta was normal. Contrast bubble study revealed no significant shunting across the interatrial septum. Doppler: Pulse wave and color Doppler were obtained, and revealed moderate central mitral regurgitation with mild to moderate tricuspid regurgitation. There was no shunting by color Doppler study. Conclusion: 1. Dilated left atrium with normal appearance of the left atrial appendage 2. Normal ventricular size and systolic function 3. Moderate mitral regurgitation 4. Mild to moderate tricuspid regurgitation 5. Normal appearance of the descending thoracic aorta 6. No significant shunting across the interatrial septum Duration of sedation 10 minutes.
[2024-12-02] MEDS ORDERED: LEVOTHYROXINE 100 MCG TAB PO SCH (07:45)
[2024-12-02] MEDS ORDERED: SODIUM CHLORIDE 0.9% 1,000 ML IV SCH (07:45)
[2024-12-02] MEDS ORDERED: LOSARTAN-HCTZ 50-12.5 MG 1 EACH TAB PO SCH (09:00)
[2024-12-02 10:04] VITALS: BP 133/64; PULSE 71
[2024-12-02] MEDS ORDERED: SIMVASTATIN 20 MG PO SCH (21:00)
[2024-12-02] MEDS ORDERED: ASPIRIN 81 MG PO SCH (21:00)
[2024-12-03] MEDS ORDERED: LEVOTHYROXINE 100 MCG TAB PO SCH (06:30)
[2024-12-03] MEDS ORDERED: DAPAGLIFLOZIN PROPANEDIOL 5 MG TABLET PO SCH (09:00)
== END 2024-12-02 09:03 | disposition home or self-care (01) ==
LOC: CATHCVL 05:38
PROVIDERS: ATTEND Internal Medicine Interventional Cardiology
DX: I08.1 Rheumatic disorders of both mitral and tricuspid valves (principal); I10 Essential (primary) hypertension; E78.5 Hyperlipidemia, unspecified; Z79.01 Long term (current) use of anticoagulants; Z79.890 Hormone replacement therapy; Z79.82 Long term (current) use of aspirin; Z87.891 Personal history of nicotine dependence
CPT/HCPCS: 93312; 93320; 93325; J2250; J3010

== ENCOUNTER → 2025-01-24 | Outpatient (CLI) | payer MEDICARE, BC ==
--- NOTE | 2025-01-24 17:46 | US ---
EXAMINATION TYPE: US carotid duplex BILAT DATE OF EXAM: 01/24/2025 COMPARISON: US 2022 CLINICAL INDICATION: Female, 69 years old with history of I65.23 CAROTID STENOSIS,BILAT; dizziness an d weakness TECHNIQUE: Grayscale, color Doppler and spectral Doppler evaluation of the bilateral carotid systems and vertebral arteries. Indirect Doppler criteria was utilized. FINDINGS: EXAM MEASUREMENTS: RIGHT: Peak Systolic Velocity (PSV) cm/sec ----- Right CCA: 74.3 ----- Right ICA: 118.5 ----- Right ECA: 72.1 ICA/CCA ratio: 1.6 RIGHT: End Diastole cm/sec ----- Right CCA: 19.3 ----- Right ICA: 47.4 ----- Right ECA: 9.5 LEFT: Peak Systolic Velocity (PSV) cm/sec ----- Left CCA: 82.0 ----- Left ICA: 117.3 ----- Left ECA: 61.1 ICA/CCA ratio: 1.4 LEFT: End Diastole cm/sec ----- Left CCA: 19.3 ----- Left ICA: 44.8 ----- Left ECA: 0.0 VERTEBRALS (direction of flow): Right Vertebral: Antegrade Left Vertebral: Antegrade Rhythm: Normal There is mild atherosclerotic change at both carotid bifurcations. IMPRESSION: No hemodynamically significant internal carotid artery stenosis on either side. Criteria for Assigning % of Stenosis / Diameter reduction (Estimation based on the indirect measurements of the internal carotid artery velocities (ICA PSV). 1. Normal (no stenosis)=ICA PSV < 180 cm/s: ratio < 2.0: ICA EDV<40 cm/s. 2. Less than 50% stenosis=ICA PSV < 180 cm/s: ratio < 2.0: ICA EDV<40 cm/s. 3. 50 to 69% stenosis=ICA PSV of 180 to 230 cm/s: ration 2.0 ? 4.0: ICA EDV 40-100 cm/s. PSV 125-180 cm/sec and ICA/CCA PSV Ratio ? 2.0 is also consistent with 50-69% stenosis 4. Greater than 70% stenosis to near occlusion= ICA PSV > 230 cm/s: ratio > 4.0: ICA EDV > 100 cm/s. 5. Near occlusion= ICA PSV velocities may be low or undetectable: variable ratio and ICA EDV. 6. Total occlusion=unable to detect flow. [facility], Workstation: MIGUEL ANGEL, 01/24/2025 5:44 PM
== END | disposition home or self-care (01) ==
LOC: RADUSWWP 13:06
PROVIDERS: ATTEND Internal Medicine
DX: I65.23 Occlusion and stenosis of bilateral carotid arteries (principal)
CPT/HCPCS: 93880